=== PATIENT | male | born 1995 | race Caucasian/White ===

== ENCOUNTER 2022-02-10 08:46 | Emergency (ER) | payer OTHER ==
--- NOTE | 2022-02-10 09:48 | ED Physician Documentation ---
PD HPI UPPER EXT INJURY - Stated complaint Stated Complaint: LT WRIST INJ - Chief complaint Chief Complaint: Trauma Ext - History obtained from History obtained from: Patient - History of Present Illness Location: Left, Elbow, Wrist Type of injury: Fall (while riding skateboard) Where injury occurred: Street Timing - onset: Yesterday Timing - duration: Days (1) Timing - details: Abrupt onset, Still present Worsened by: Moving, Palpating Associated symptoms: Swelling (of wrist and elbow). No: Weakness, Numbness Similar symptoms before: Has not had sx before Recently seen: Not recently seen Review of Systems Constitutional: denies: Fever Nose: denies: Rhinorrhea / runny nose, Congestion Throat: denies: Sore throat Respiratory: denies: Cough Skin: denies: Abrasion (s), Laceration (s) Musculoskeletal: reports: Extremity swelling (around elbow and dorsal radial wrist.). denies: Neck pain, Back pain Neurologic: denies: Focal weakness, Numbness, Altered mental status, Headache, H ead injury PD PAST MEDICAL HISTORY - Past Medical History Cardiovascular: None Respiratory: None GI: Ulcerative colitis (is not supposed to take NSAIDs.) - Allergies Allergies/Adverse Reactions: Allergies Allergy/AdvReac Type Severity Reaction Status Date / Time No Known Drug Allergies Allergy Verified 02/10/22 08:58 - Living Situation Living Situation: reports: With spouse/s.o. Living Arrangement: reports: At home PD ED PE NORMAL - Vitals Vital signs reviewed: Yes - General General: Alert and oriented X 3, No acute distress (guarding ROM of left wrist and elbow. ), Well developed/nourished - HEENT HEENT: Atraumatic - Neck Neck: Supple, no meningeal sign, No bony TTP - Cardiac Cardiac: RRR - Respiratory Respiratory: Clear bilaterally, Other (no chestweall tenderness) - Abdomen Abdomen: Normal bowel sounds, Non tender - Back Back: No spinal TTP - Derm Derm: Normal color, Warm and dry - Extremities Extremities: Other (left wrist with tenderness and swelling dorsal radial area. Normal color, cap refill, sensation in fingers. Good wrist pulses. Left elbow with moderate effusion. Tender posteriorly. Some at antecubital area. Unable to fully straighten the elbow due to pain/swelling. Concerning for fx. ) - Neuro Neuro: Alert and oriented X 3, No motor deficit, No sensory deficit, Normal speech Results - Vitals Vitals: Vital Signs - 24 hr 02/10/22 02/10/22 08:53 11:12 Temperature 36.5 C Heart Rate 76 82 Respiratory 20 14 Rate Blood Pressure 109/64 106/77 O2 Saturation 100 98 Oxygen O2 Source Room air - Rads (name of study) left elbow Radiology: Prelim report reviewed (moderate effusion. Concern for occult radial neck fracture. ), See rad report left wrist Radiology: Prelim report reviewed (radial styloid fracture, minimally displaced. Also likely small ulnar styloid fracture. ), See rad report Procedures - Splint (location) left wrist Splint applied by: Tech Type of splint: Fiberglass, Sugar tong (so as to protect wrist fracture and also potential elbw occult fracture.) Other: Patient tolerated well, No complications, Neurovascular intact, Sling provided PD MEDICAL DECISION MAKING - ED course Complexity details: reviewed results, considered differential (he declined opioid meds. ), d/w patient Departure - Departure Disposition: Home, Self Care Clinical Impression: Fall from skateboard, initial encounter Wrist fracture, left Qualifiers: Encounter type: initial encounter Fracture type: closed Qualified Code(s): S62.102A - Fracture of unspecified carpal bone, left wrist, initial encounter for closed fracture Elbow injury Qualifiers: Encounter type: initial encounter Laterality: left Qualified Code(s): S59.902A - Unspecified injury of left elbow, initial encounter Condition: Stable Record reviewed to determine appropriate education?: Yes Instructions: ED Fx Wrist General Follow-Up: Fred Singh MD [Provider Admit Priv/Credential] - Comments: Your x-ray shows no fracture of the radial styloid and possibly the ulnar styloid. The positioning seems reasonable at this point. Your elbow x-ray has concern for an occult fracture of the radial neck given the swelling and decreased range of motion. However firm fracture is not visible per se. We will treat these with the splint for the wrist tendon elbow in the sling. Ice elevate and rest often for the wrist to reduce swelling. Tylenol every 4-6 hours if needed for pain. Follow-up with orthopedics later this coming week or the following. Call Friday for an appointment and they will have you follow-up at commonly that timeframe interval (will within a week.) Discharge Date/Time: 02/10/22 11:13
--- NOTE | 2022-02-10 09:58 | XRAY Report ---
PROCEDURE: Wrist 4 View LT INDICATIONS: Trauma TECHNIQUE: 3 views of the wrist were acquired. COMPARISON: Correlation is made with the accompanying elbow plain films, 02/10/2022. FINDINGS: Bones: There is a mildly displaced intra-articular radial styloid fracture. No additional fractures can be seen. No suspicious bony lesions. Scaphoid view: No scaphoid fractures are seen. Soft tissues: No suspicious soft tissue calcifications. IMPRESSION: Mildly displaced radial styloid fracture, with intra-articular involvement. Reviewed by: Yony Wilson MD on 02/10/2022 8:57 AM [facility] Approved by: Yony Wilson MD on 02/10/2022 8:57 AM [facility] Station ID: [id number]
--- NOTE | 2022-02-10 10:00 | XRAY Report ---
PROCEDURE: Elbow 3 View LT INDICATIONS: Trauma TECHNIQUE: 3 views of the elbow were acquired. COMPARISON: Correlation is made with the accompanying wrist plain films, 02/10/2022. FINDINGS: Bones: There is a potential nondisplaced radial head fracture. No suspicious lytic or blastic lesions are seen. Soft tissues: There is a large joint effusion. IMPRESSION: Large joint effusion. Potential nondisplaced radial head fracture. If it would be helpful for clinical management decision making, please consider a dedicated elbow CT for further evaluation. Reviewed by: Yony Wilson MD on 02/10/2022 8:58 AM [facility] Approved by: Yony Wilson MD on 02/10/2022 8:58 AM [facility] Station ID: [id number]
[2022-02-10] MEDS ORDERED: ACETAMINOPHEN 325 MG TABLET PO STA (10:09)
[2022-02-10 11:13] VITALS: BP 106/77
== END 2022-02-10 11:13 | disposition home or self-care (01) ==
LOC: ED 08:46
DX: S62.102A Fracture of unspecified carpal bone, left wrist, initial encounter for closed fracture (principal); S59.902A Unspecified injury of left elbow, initial encounter; V00.131A Fall from skateboard, initial encounter; Y93.51 Activity, roller skating (inline) and skateboarding
CPT/HCPCS: 73080; 73110; 99283; 99284; A9270

== ENCOUNTER 2022-03-12 06:00 | Outpatient (CLI) | payer OTHER ==
--- NOTE | 2022-03-12 16:19 | XRAY Report ---
PROCEDURE: Wrist 3 View LT INDICATIONS: WRIST FX TECHNIQUE: 3 views of the wrist were acquired. COMPARISON: X-ray wrist 02/10/2022. FINDINGS: Bones: There is a mildly displaced intra-articular fracture of the radial styloid. Alignment is uncha nged.. No suspicious bony lesions. Soft tissues: No suspicious soft tissue calcifications. IMPRESSION: Stable alignment of mildly displaced intra-articular radial styloid fracture. Reviewed by: Jeri Israel MD on 03/12/2022 4:17 PM PDT Approved by: Jeri Israel MD on 03/12/2022 4:17 PM PDT Station ID: [id number]
--- NOTE | 2022-03-12 16:23 | XRAY Report ---
PROCEDURE: Elbow 3 View LT INDICATIONS: ELBOW PAIN TECHNIQUE: 3 views of the elbow were acquired. COMPARISON: Left elbow radiographs 02/10/2022. FINDINGS: Bones: Possible healing nondisplaced radial head fracture. No dislocation. No suspicious bony lesion s. Soft tissues: Decreased joint effusion. No suspicious soft tissue calcifications. IMPRESSION: Suspect healing nondisplaced radial head fracture. Reviewed by: Mekhi Horner MD on 03/12/2022 4:21 PM PDT Approved by: Mekhi Horner MD on 03/12/2022 4:21 PM PDT Station ID: [id number]
== END 2022-03-12 23:59 | disposition home or self-care (01) ==
LOC: DI.WOS 06:00
PROVIDERS: ATTEND Orthopaedic Surgery
DX: S52.512D Displaced fracture of left radial styloid process, subsequent encounter for closed fracture with routine healing (principal); S52.125D Nondisplaced fracture of head of left radius, subsequent encounter for closed fracture with routine healing

== ENCOUNTER 2023-01-30 13:27 | Emergency (ER) | payer OTHER ==
[2023-01-30] MEDS ORDERED: ONDANSETRON 4 MG/2 ML VIAL IVP STA (13:46)
[2023-01-30] MEDS ORDERED: SODIUM CHLORIDE 0.9% 1,000 ML IV STA ×2 (13:46→15:21)
[2023-01-30 14:03] LABS: BASOPHILS % (AUTO) 0.3 %; EOSINOPHILS % (AUTO) 0.1 %; HCT - HEMATOCRIT 42.7 % (42.0-52.0); HGB - HEMOGLOBIN 13.2 g/dL (14.0-18.0); LYMPHOCYTES # (AUTO) 0.2 10^3/uL (1.5-3.5); LYMPHOCYTES % (AUTO) 1.9 %; MEAN CORPUSCULAR HEMOGLOBIN 24.7 pg (27.0-31.0); MEAN CORPUSCULAR HGB CONC 30.9 g/dL (32.0-36.0); MEAN CORPUSCULAR VOLUME 79.8 fL (80.0-94.0); MEAN PLATELET VOLUME 9.4 fL (7.4-11.4); MONOCYTES # (AUTO) 0.4 10^3/uL (0.0-1.0); MONOCYTES % (AUTO) 3.1 %; NEUTROPHILS # (AUTO) 12.2 10^3/uL (1.5-6.6); NEUTROPHILS % (AUTO) 94.4 %; PLT - PLATELET COUNT 416 10^3/uL (130-450); RED BLOOD COUNT 5.35 10^6/uL (4.70-6.10); RED CELL DISTRIBUTION WIDTH 13.5 % (12.0-15.0)
[2023-01-30 14:16] LABS: ALBUMIN 4.1 g/dL (3.2-5.5); ALBUMIN/GLOBULIN RATIO 0.9 (1.0-2.2); BILIRUBIN,TOTAL 0.8 mg/dL (0.2-1.0); CALCIUM 9.2 mg/dL (8.5-10.3); POTASSIUM 3.9 mmol/L (3.5-5.0); TOTAL PROTEIN 8.5 g/dL (6.7-8.2)
--- NOTE | 2023-01-30 14:20 | ED Physician Documentation ---
PD HPI NVD - Stated complaint Stated Complaint: VOMIT, FOOD POISON - Chief complaint Chief Complaint: Abd Pain - History obtained from History obtained from: Patient - Additonal information Additional information: Patient is a 27-year-old male presenting for evaluation of nausea, vomiting and diarrhea starting at 7:00 this morning. Patient reports having 5 episodes of vomiting and 7 watery stools. He is concerned he may have food poisoning. He had fried chicken yesterday. He denies any known sick contacts. He does work at a vet clinic. He does have a history of ulcerative colitis and is getting infusions of Entyvio (Next infusion scheduled for tomorrow). He states this feels different than his ulcerative colitis flares. He denies blood in stools or emesis. He denies any abdominal discomfort. He reports feeling lightheaded and is unable to tolerate any p.o. intake today. He denies recent antibiotic use or travel. Review of Systems Constitutional: denies: Fever Cardiac: denies: Chest pain / pressure Respiratory: denies: Dyspnea GI: reports: Vomiting, Diarrhea. denies: Abdominal Pain, Hematemesis, Bloody / black stool : denies: Dysuria PD PAST MEDICAL HISTORY - Past Medical History Past Medical History: Yes Cardiovascular: None Respiratory: None Neuro: None Endocrine/Autoimmune: None GI: Ulcerative colitis : None HEENT: None Psych: None Musculoskeletal: None Derm: None - Past Surgical History Past Surgical History: No - Present Medications Home Medications: Ambulatory Orders Medication Instructions Recorded Confirmed Ondansetron Odt [Zofran] 4 mg TL Q6H PRN #10 tablet 01/30/23 Vedolizumab [Entyvio] 300 mg IV UD 01/30/23 01/30/23 - Allergies Allergies/Adverse Reactions: Allergies Allergy/AdvReac Type Severity Reaction Status Date / Time No Known Drug Allergies Allergy Verified 01/30/23 13:34 - Social History Does the pt smoke?: No Smoking Status: Never smoker Does the pt drink ETOH?: No Does the pt have substance abuse?: No - POLST Patient has POLST: No PD ED PE NORMAL - General General: Alert and oriented X 3, No acute distress, Well developed/nourished - HEENT HEENT: Atraumatic - Neck Neck: Supple, no meningeal sign - Cardiac Cardiac: No murmur, Other (Tachycardic, regular rhythm) - Respiratory Respiratory: No respiratory distress, Clear bilaterally - Abdomen Abdomen: Normal bowel sounds, Soft, Non tender, Non distended - Neuro Neuro: Normal speech Results - Vitals Vitals: Vital Signs - 24 hr 01/30/23 01/30/23 01/30/23 13:29 15:53 16:51 Temperature 37.2 C Heart Rate 130 H 116 H 120 H Respiratory 18 21 18 Rate Blood Pressure 108/68 111/76 105/73 O2 Saturation 100 95 94 Oxygen O2 Source Room air - Labs Labs: Laboratory Tests 01/30/23 01/30/23 13:57 13:57 WBC 13.0 H RBC 5.35 Hgb 13.2 L Hct 42.7 MCV 79.8 L MCH 24.7 L MCHC 30.9 L RDW 13.5 Plt Count 416 MPV 9.4 Neut # (Auto) 12.2 H Lymph # (Auto) 0.2 L [place] # (Auto) 0.4 Eos # (Auto) 0.0 Baso # (Auto) 0.0 Absolute Nucleated RBC 0.00 Nucleated RBC % 0.0 Sodium 132 L Potassium 3.9 Chloride 98 L Carbon Dioxide 22 Anion Gap 12.0 BUN 13 Creatinine 1.0 Estimated GFR (MDRD) 91 Glucose 128 H Calcium 9.2 Total Bilirubin 0.8 AST 17 ALT 14 Alkaline Phosphatase 86 Total Protein 8.5 H Albumin 4.1 Globulin 4.4 H Albumin/Globulin Ratio 0.9 L Lipase 31 PD Medical Decision Making - ED course Complexity details: reviewed results, re-evaluated patient, d/w patient ED course: Patient is a 27-year-old male with a history of ulcerative colitis presenting for evaluation of nausea, vomiting and diarrhea that started this morning. Patient's diarrhea has improved. He did have 1 episode here and we did send it for C. difficile and stool culture.His primary concern is multiple episodes of nausea and vomiting and not able to tolerate any p.o. intake. CBC and chemistries were obtained. Mild hyponatremia 132. Mild leukocytosis of 13,000. Abdominal exam on initial and on repeat remains benign with no tenderness, rebound or guarding. Patient was noted to be tachycardic upon arrival.He is feeling better after IV fluids and Zofran. He was given a second liter of fluids with continued improvement in his tachycardia.His heart rate was in the low 100s But does increase Once I or another staff member walked into the room and start speaking to the patient. He denies feeling palpitations, chest pain, shortness of breath, dizziness. He is feeling much better and is comfortable with continued supportive care. He is able to tolerate p.o. Do not think abdominal imaging is necessary at this time. As he is able to hydrate now with p.o. intake I do not think he needs additional fluids. He does not appear septic. He is counseled on continued supportive care as well as concerning symptoms to return for. Departure - Departure Disposition: Home, Self Care Clinical Impression: Nausea vomiting and diarrhea Condition: Stable Instructions: ED Diet Vomiting Diarrhea Prescriptions: Ondansetron Odt [Zofran] 4 mg TL Q6H PRN #10 tablet PRN Reason: Nausea / Vomiting Comments: We have sent your stool for testing for C. difficile as well as other bacterial infections. We will notify you if it is abnormal. I [facility] [place] Please continue with a liquid or bland diet today and advance as tolerated. Your heart rate has been fast but does appear to be better with IV fluids. If it anytime you feel any worsening symptoms such as pain, blood in your stools, weakness or have any new concerns please return to the emergency department. Discharge Date/Time: 01/30/23 16:54
[2023-01-30 16:51] VITALS: BP 105/73
== END 2023-01-30 16:54 | disposition home or self-care (01) ==
LOC: ED 13:27
DX: R11.2 Nausea with vomiting, unspecified (principal); R19.7 Diarrhea, unspecified; R00.0 Tachycardia, unspecified
CPT/HCPCS: 36415; 80053; 83690; 85025; 87045; 87046; 87427; 87493; 96361; 96374; 99284